=== PATIENT | female | born 1970 | race Caucasian/White ===

== ENCOUNTER 2020-12-16 11:31 | Inpatient (IN) | payer MEDICAID, SELFPAY ==
--- NOTE | ~2020-12-16 | XR_ITS ---
EXAMINATION: XR CHEST CLINICAL INFORMATION: Rule out TB COMPARISON: None TECHNIQUE: Frontal view of the chest was obtained. FINDINGS: No significant abnormality is noted involving the heart, lungs, mediastinum, bony thorax or soft tissues. XR/XR chest 1V IMPRESSION: Unremarkable examination.
--- NOTE | ~2020-12-16 | CT_ITS ---
EXAMINATION: CT SOFT TISSUE NECK WITH CONTRAST CLINICAL INFORMATION: Bilateral parotitis. COMPARISON: There are no prior studies for comparison. TECHNIQUE: Following the intravenous administration of 60 mL of Omnipaque 350 intravenous contrast, helical imaging was performed in the axial plane with generation of coronal and sagittal reformatted images. This CT examination was performed using dose optimization techniques as appropriate, variously including the following: *Automated exposure control *Adjustment of mA and/or kV according to patient size (this includes techniques or standardized protocols for targeted exams where dose is matched to indication/reason for exam; i.e. extremities or head) *Use of iterative reconstruction technique DLP: 364 mGy-cm FINDINGS: The bilateral parotid glands are prominent with increased and slightly heterogenous attenuation. No discrete areas of abnormal enhancement are noted. There is slight increased attenuation in the adjacent subcutaneous fat, and the findings are consistent with inflammatory/infective changes. Similar findings noted in the region of the left submandibular gland, with mild surrounding edematous attenuation. There is no cervical lymphadenopathy. There are small lymph nodes at multiple levels in the neck bilaterally. The right submandibular gland appears normal. The laryngeal structures are normal. The parapharyngeal fat is preserved. There is good opacification of the vascular structures. No extra mucosal soft tissue mass or fluid collection is seen. No retropharyngeal fluid collection is seen. The thyroid gland is normal. The superior mediastinum is unremarkable. There are no pneumothoraces. There are multiple blebs at the right lung apex. There is an osteoma in the right ethmoid sinus. There is mucoperiosteal thickening the bilateral ethmoid sinuses and there is a cyst/polyp in the right maxillary sinus. The temporomandibular joints are normal. No periapical disease is identified. No osseous abnormalities are seen. The imaged portions of the brain parenchyma are unremarkable. CT/CT soft tissue neck w con IMPRESSION: 1. The bilateral parotid and left submandibular glands are prominent with increased and slightly heterogenous attenuation. There is increased attenuation in the surrounding fat and there may be some fluid around the left submandibular gland. These findings are consistent with sialoadenitis in the correct clinical setting. 2. There is no cervical lymphadenopathy. No masses are demonstrated. 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
[2020-12-16 11:54] VITALS: BP 135/100; PULSE 97; RESP 18; TEMP 37.3; O2SAT 98; BMI 17.2
--- NOTE | 2020-12-16 15:48 | ED.URI ---
HPI - URI/Sore Throat General Chief Complaint: Upper Respiratory Symptoms Stated Complaint: swollen glands Time Seen by Provider: 12/16/20 15:22 Source: patient Mode of arrival: ambulatory History of Present Illness HPI Narrative: 50-year-old female with a past medical history of emphysema, substance abuse currently on Suboxone, presents to ED complaining of sore throat and bilateral swollen glands x a couple days. Reports glands are painful with difficulty opening mouth. Reports pain with swallowing. Also reports night sweats last night. Denies fever, ear pain, inability to swallow, SOB, wheezing, recent travel, sick contacts Denies prior TB exposure, prior incarceration, prior IV drug abuse (admits used to snort heroin, currently on Suboxone) Related Data Home Medications Medication Instructions Recorded Confirmed No Known Home Meds 12/16/20 12/16/20 Allergies Allergy/AdvReac Type Severity Reaction Status Date / Time codeine Allergy Swelling Verified 12/16/20 11:53 Review of Systems Review of Systems: Constitutional: No Weight loss, No Fever, + Chills, + Night Sweats, No Fatigue, No Malaise ENT/Mouth: No Hearing loss, No Ear Pain, No Nasal Congestion, No Hoarseness, + sore throat, No Swallowing Difficulty, +painful swallowing Eyes: No Eye Pain, No Swelling, No Redness, No Vision Changes Cardiovascular: No Chest Pain, No SOB Respiratory: No Cough, No Wheezing, No Dyspnea Gastrointestinal: No Nausea, No Vomiting, No Abdominal pain Musculoskeletal: No joint pain, No Myalgias, No Joint Swelling Skin: No Skin Lesions, No rash Neuro: No Weakness, No Headache Yes all other systems are reviewed and are negative [facility] Past Medical History Attestation statement: The following information was validated with the patient. Medical History (Updated 12/16/20 @ 17:47 by DANILO Ward) Emphysema lung Social History Social History Advance Directives: No Advance Directives Information Provided: Yes Patient : No Physical Exam Vital Signs: Vital Signs: Last Vital Signs Temp 99.2 F 12/16/20 11:54 Pulse 97 12/16/20 11:54 Resp 18 12/16/20 11:54 BP 135/100 H 12/16/20 11:54 Pulse Ox 98 12/16/20 11:54 Body Mass Index 17.2 Const: General: cooperative, alert and awake Orientation/consciousness: patient oriented x3 Limitations: no limitations HENMT: Head: Yes normal to inspection Ears: hearing grossly normal bilaterally and TM's normal bilaterally General nose exam: Normal external nose present Face and sinus: Yes normal facial exam Mouth: Normal oral and palatal mucosa present and tongue normal Throat: Yes posterior oropharynx normal, Yes tonsils normal, Yes uvula midline, No peritonsillar mass and No uvular edema Eyes: General: appearance normal, both eyes and all related structures Pupils: Equal, round and reactive pupils present EOM: EOMs intact bilaterally Neck: Neck: Yes bilateral parotid enlargement (with erythema and tenderness to palpation. No fluctuance) Resp: Effort & Inspection: normal respiratory effort, no stridor and not tachypneic Cardio: Rate: regular rate Heart sounds: S1 normal heart sound present and S2 normal heart sound present GI: Inspection: Yes normal to inspection Palpation (GI): Soft to palpation, nontender, no guarding and not rigid Skin: Rashes: no rashes Wounds: no wounds Neuro: General: patient oriented x3 Cranial nerves: Yes Equal, round and reactive pupils present Extrem: General: Yes normal to inspection Course Course Course Narrative: XR chest 1V IMPRESSION: Unremarkable examination. ? -leukocytosis of 14, CRP elevated to 30.22, labs otherwise unremarkable -ID consulted who also recommended adding on toxoplasmosis and cat scratch -1800--ED care transferred to DANILO Iglesias pending remaining labs, CT, and anticipated admission MDM - URI/Sore Throat MDM Narrative Medical decision making narrative: 50-year-old female with a past medical history of emphysema, substance abuse currently on Suboxone, presents to ED complaining of sore throat and bilateral swollen glands x a couple days. On exam hypertensive, nontoxic, bilateral parotid enlargement and tenderness to palpation with overlying erythema. Concern for bilateral parotitis from viral or bacterial etiology with possible overlying cellulitis Rule out syphilis vs HIV vs tuberculosis lymphadenitis Case discussed with Dr. Russell who also evaluated patient and is in agreement with plan Plan: Labs, TB/syphilis/HIV testing, Monospot/rapid strep, lactic/blood cultures, CXR, CT neck, Empiric IV antibiotics, ID consult, anticipated admission Medical Records Attestation: I reviewed the patient's medical records. Lab Data Attestation: I reviewed the patient's lab results. Result diagrams: 12/16/20 16:21 12/16/20 16:21 Labs: Lab Results 12/16/20 12/16/20 12/16/20 Range/Units 16:21 16:21 16:21 WBC 14.0 H (4.8-10.8) X10*3/uL RBC 4.36 (4.20-5.50) X10*6/uL Hgb 13.5 (12.0-16.0) g/dl Hct 40.1 (37-47) % MCV 92.0 (80-98) fL MCH 31.0 (27.0-33.0) pg MCHC 33.7 (31.0-35.0) g/dl RDW 12.5 (11.0-16.0) % Plt Count 253 (160-400) X10*3/uL MPV 9.8 (9.4-12.3) fL Immature Gran % (Auto) 1.5 H (0.0-0.4) % Neut % (Auto) 80.0 H (45-73) % Lymph % (Auto) 9.3 L (20-40) % [place] % (Auto) 8.5 (2-11) % Eos % (Auto) 0.5 (0-4) % Baso % (Auto) 0.2 (0-2) % Lymph # (Auto) 1.3 (1.2-4.9) X10*3/uL [place] # (Auto) 1.2 (0.1-1.2) X10*3/uL Eos # (Auto) 0.1 (0.0-0.4) X10*3/uL Baso # (Auto) 0.0 (0.0-0.2) X10*3/uL Abs Immat Gran (auto) 0.21 H (0.00-0.03) X10*3/uL Absolute Neuts (auto) 11.2 H (2.0-8.3) X10*3/uL Absolute Nucleated RBC 0.000 (0.0-0.012) X10*3/uL Nucleated RBC % (auto) 0.0 (0.0-0.2) /100WBC Sodium 137 (135-145) mmol/L Potassium 3.5 (3.3-5.1) mmol/L Chloride 96 (96-108) mmol/L Carbon Dioxide 26 (22-29) mmol/L Anion Gap 19 (12-20) BUN 9 (9-16) mg/dL Creatinine 0.68 (0.5-1.4) mg/dL Estim Creat Clear Calc 85.9 Estimated GFR > 60 Random Glucose 114 (60-115) mg/dL Lactic Acid (0.5-2.0) mmol/L Calcium 9.7 (8.4-10.2) mg/dL Magnesium (1.6-2.6) mg/dL Total Bilirubin 1.2 H (0.0-1.0) mg/dL Direct Bilirubin 0.5 (0.0-0.5) mg/dL AST 22 (5-31) U/L ALT 16 (0-31) U/L Alkaline Phosphatase 117 (39-117) U/L C-Reactive Protein (< or = 0.50) mg/dL Total Protein 7.5 (6.5-8.0) g/dL Albumin 4.3 (3.5-5.0) g/dL COVID-19 (DANIELLE) (Negative) COVID-19 Clin Com Monoscreen Negative (Negative) S. pyogenes GrpA JERARDO (Negative) 12/16/20 12/16/20 12/16/20 Range/Units 16:21 16:21 16:21 WBC (4.8-10.8) X10*3/uL RBC (4.20-5.50) X10*6/uL Hgb (12.0-16.0) g/dl Hct (37-47) % MCV (80-98) fL MCH (27.0-33.0) pg MCHC (31.0-35.0) g/dl RDW (11.0-16.0) % Plt Count (160-400) X10*3/uL MPV (9.4-12.3) fL Immature Gran % (Auto) (0.0-0.4) % Neut % (Auto) (45-73) % Lymph % (Auto) (20-40) % [place] % (Auto) (2-11) % Eos % (Auto) (0-4) % Baso % (Auto) (0-2) % Lymph # (Auto) (1.2-4.9) X10*3/uL [place] # (Auto) (0.1-1.2) X10*3/uL Eos # (Auto) (0.0-0.4) X10*3/uL Baso # (Auto) (0.0-0.2) X10*3/uL Abs Immat Gran (auto) (0.00-0.03) X10*3/uL Absolute Neuts (auto) (2.0-8.3) X10*3/uL Absolute Nucleated RBC (0.0-0.012) X10*3/uL Nucleated RBC % (auto) (0.0-0.2) /100WBC Sodium (135-145) mmol/L Potassium (3.3-5.1) mmol/L Chloride (96-108) mmol/L Carbon Dioxide (22-29) mmol/L Anion Gap (12-20) BUN (9-16) mg/dL Creatinine (0.5-1.4) mg/dL Estim Creat Clear Calc Estimated GFR Random Glucose (60-115) mg/dL Lactic Acid 1.0 (0.5-2.0) mmol/L Calcium (8.4-10.2) mg/dL Magnesium (1.6-2.6) mg/dL Total Bilirubin (0.0-1.0) mg/dL Direct Bilirubin (0.0-0.5) mg/dL AST (5-31) U/L ALT (0-31) U/L Alkaline Phosphatase (39-117) U/L C-Reactive Protein 30.22 H (< or = 0.50) mg/dL Total Protein (6.5-8.0) g/dL Albumin (3.5-5.0) g/dL COVID-19 (DANIELLE) Negative (Negative) COVID-19 Clin Com See Note Monoscreen (Negative) S. pyogenes GrpA JERARDO (Negative) 12/16/20 12/16/20 Range/Units 16:21 16:23 WBC (4.8-10.8) X10*3/uL RBC (4.20-5.50) X10*6/uL Hgb (12.0-16.0) g/dl Hct (37-47) % MCV (80-98) fL MCH (27.0-33.0) pg MCHC (31.0-35.0) g/dl RDW (11.0-16.0) % Plt Count (160-400) X10*3/uL MPV (9.4-12.3) fL Immature Gran % (Auto) (0.0-0.4) % Neut % (Auto) (45-73) % Lymph % (Auto) (20-40) % [place] % (Auto) (2-11) % Eos % (Auto) (0-4) % Baso % (Auto) (0-2) % Lymph # (Auto) (1.2-4.9) X10*3/uL [place] # (Auto) (0.1-1.2) X10*3/uL Eos # (Auto) (0.0-0.4) X10*3/uL Baso # (Auto) (0.0-0.2) X10*3/uL Abs Immat Gran (auto) (0.00-0.03) X10*3/uL Absolute Neuts (auto) (2.0-8.3) X10*3/uL Absolute Nucleated RBC (0.0-0.012) X10*3/uL Nucleated RBC % (auto) (0.0-0.2) /100WBC Sodium (135-145) mmol/L Potassium (3.3-5.1) mmol/L Chloride (96-108) mmol/L Carbon Dioxide (22-29) mmol/L Anion Gap (12-20) BUN (9-16) mg/dL Creatinine (0.5-1.4) mg/dL Estim Creat Clear Calc Estimated GFR Random Glucose (60-115) mg/dL Lactic Acid (0.5-2.0) mmol/L Calcium (8.4-10.2) mg/dL Magnesium 1.6 (1.6-2.6) mg/dL Total Bilirubin (0.0-1.0) mg/dL Direct Bilirubin (0.0-0.5) mg/dL AST (5-31) U/L ALT (0-31) U/L Alkaline Phosphatase (39-117) U/L C-Reactive Protein (< or = 0.50) mg/dL Total Protein (6.5-8.0) g/dL Albumin (3.5-5.0) g/dL COVID-19 (DANIELLE) (Negative) COVID-19 Clin Com Monoscreen (Negative) S. pyogenes GrpA JERARDO Negative (Negative) Discharge Plan Discharge Clinical Impression: Acute parotitis Prescriptions: No Action No Known Home Meds RF: 0
[2020-12-16 16:29] LABS: MANUAL DIFF FLAG NO
--- NOTE | 2020-12-16 16:32 | PHA.MEDREC ---
Pharmacy Consult ? Medication Reconciliation Pharmacy has completed the medication reconciliation.
[2020-12-16 16:33] LABS: Basophils Percent Auto 0.2 % (0-2); Eosinophils Absolute Auto 0.1 X10*3/uL (0.0-0.4); Eosinophils Percent Auto 0.5 % (0-4); Hematocrit 40.1 % (37-47); Hemoglobin 13.5 g/dl (12.0-16.0); Imm Gran Abs Auto 0.21 X10*3/uL (0.00-0.03); Imm Gran Pct Auto 1.5 % (0.0-0.4); Lymphocytes Absolute Auto 1.3 X10*3/uL (1.2-4.9); Lymphocytes Percent Auto 9.3 % (20-40); Mean Corpuscular HGB Conc 33.7 g/dl (31.0-35.0); Mean Platelet Volume 9.8 fL (9.4-12.3); Monocytes Absolute Auto 1.2 X10*3/uL (0.1-1.2); Monocytes Percent Auto 8.5 % (2-11); Neutrophils Absolute Auto 11.2 X10*3/uL (2.0-8.3); Platelet Count 253 X10*3/uL (160-400); Red Blood Count 4.36 X10*6/uL (4.20-5.50); Red Cell Distribution Width 12.5 % (11.0-16.0)
[2020-12-16 16:41] LABS: Strep A Nucleic Acid Negative (Negative)
[2020-12-16] MEDS: Ketorolac Tromethamine 15 MG/ML VIAL 30 MG IVPUSH (16:46)
[2020-12-16] MEDS: 0.9 % Sodium Chloride 1,000 ML 999 ML IVCONT (16:46)
[2020-12-16] MEDS: ceFAZolin Sodium/Dextrose,Iso 2 GM/50 ML PIGGYBACK IV (16:47)
[2020-12-16 16:49] LABS: COVID-19 Test Negative (Negative)
[2020-12-16 16:51] LABS: Monotest Negative (Negative)
[2020-12-16 16:58] LABS: C Reactive Protein 30.22 mg/dL (< or = 0.50)
[2020-12-16 17:01] LABS: Magnesium 1.6 mg/dL (1.6-2.6)
[2020-12-16 17:11] LABS: Alanine Aminotransferase 16 U/L (0-31); Albumin Level 4.3 g/dL (3.5-5.0); Alkaline Phosphatase 117 U/L (39-117); Anion Gap 19 (12-20); Aspartate Amino Transferase 22 U/L (5-31); Bilirubin Direct 0.5 mg/dL (0.0-0.5); Bilirubin Total 1.2 mg/dL (0.0-1.0); Blood Urea Nitrogen 9 mg/dL (9-16); Calcium 9.7 mg/dL (8.4-10.2); Carbon Dioxide 26 mmol/L (22-29); Chloride 96 mmol/L (96-108); Creatinine Clr Calc Pharmacy 85.9; Estimated Glomerular Filt Rate > 60; Glucose Random 114 mg/dL (60-115); Potassium 3.5 mmol/L (3.3-5.1); Sodium 137 mmol/L (135-145); Total Protein 7.5 g/dL (6.5-8.0)
[2020-12-16] MEDS: iohexoL 350 MG/ML 100 ML INFUS..BTL IV (18:01)
[2020-12-16 18:05] LABS: Erythrocyte Sedimentation Rate 37 MM/HR (0-20)
[2020-12-16 18:50] LABS: Amphetamine Screen Urine Not Detected (Not Detect); Barbiturates, Urine Not Detected (Not Detect); Benzodiazepines Screen Urine Not Detected (Not Detect); Cannabinoid Screen Urine POSITIVE (Not Detect); Cocaine Screen Urine POSITIVE (Not Detect); Opiate Screen Urine POSITIVE (Not Detect); Phencyclidine Screen Urine Not Detected (Not Detect)
[2020-12-16 19:33] VITALS: BP 122/66; PULSE 62; RESP 18; TEMP 37.2; O2SAT 98
--- NOTE | 2020-12-16 21:35 | PC.NURSE ---
pt remains sleeping. very sleepy as though client used. not safe for client to be d.c at this time. still pending eval
[2020-12-16 21:41] VITALS: BP 140/83; PULSE 53; RESP 16; TEMP 36.8; O2SAT 94
[2020-12-17] VITALS (7 sets, daily range): BP systolic 122–157; BP diastolic 71–94; PULSE 58–100; RESP 18–20; TEMP 36.1–37.3; O2SAT 95–99; BMI 17.0
[2020-12-17] MEDS: Ketorolac Tromethamine 15 MG/ML VIAL 30 MG IVPUSH (00:25)
--- NOTE | 2020-12-17 00:27 | PC.NURSE ---
pt medicated per PA orders for 10/10 throat pain. hospitalist at bedside for primary evaluation. pt denies taking medication daily and admits to previous suboxone use but denies consistently using and/or being dosed regularly as she is from [place].
--- NOTE | 2020-12-17 01:23 | P.HPHOSP_ITS ---
History of Present Illness Date of Service: 12/17/20 Chief Complaint: Bilateral parotid swelling 50-year-old female with no significant past medical history except for substance abuse; heroin abuse-sniffs; denies IV drug abuse; presented to the hospital today with a chief complaint of bilateral parotid swelling. Mentions that pain she has been having bilateral parotid swelling or past couple days. Denies any fevers and chills. Complains of throat pain/discomfort. Patient also complains of cough with brownish sputum. Denies any rash. Denies any sick contacts. Patient denies any chest pain, palpitations, lightheadedness or dizziness. Denies any GI or symptoms. Review of all other systems is negative except mentioned above ER course: ER team mentioned that patient of bilateral parotid swelling; CT scan showed no obvious abscess formationn but noted swelling of the bilateral parotids and fluid around; discussed with infectious disease who recommended to send HIV, RPR, strep throat, toxoplasma, TB spot test; patient was given Ceftin for sole in and admitted to the hospital for further management. [facility] Medical History (Updated 12/18/20 @ 14:04 by Los Guy MD) Emphysema lung Opioid use disorder Social History Household Members: Family Housing: House Do you presently have visiting nurse or other home services: No Patient Tobacco Use Status: Current everyday Tobacco user Tobacco use type: Cigarette and Smokeless Tobacco Cigarette Packs Per Day: 0.5 Cigarettes Per Day: 10.0 Years Smoked: 12 Second Hand Smoke Exposure: No Substance Use Type: Crack/Cocaine, Marijuana and Opiates service: No Current occupational status: unemployed Meds Allergies Allergy/AdvReac Type Severity Reaction Status Date / Time codeine Allergy Swelling Verified 12/16/20 11:53 Active Medications: Current Medications Generic Name Dose Route Start Last Admin Trade Name Freq PRN Reason Stop Dose Admin Benzocaine 1 lozenge 12/17/20 01:15 Throat Lozenge, Medicated Lozenge MUCOUS MEM Q2H PRN Sore Throat Dexamethasone Sodium Phosphate 4 mg 12/17/20 09:00 Dexamethasone Sod Phosphate 4 Mg/Ml Vial IVPUSH DAILY [facility] Heparin Sodium (Porcine) 5,000 unit 12/17/20 01:15 Heparin Sodium,Porcine 5,000 Unit/Ml Vial SUBCUT Q8H [facility] Clindamycin Phosphate 600 mg in 50 mls @ 100 mls/hr 12/17/20 01:15 Cleocin IV Q8H [facility] Ketorolac Tromethamine 15 mg 12/17/20 01:15 Ketorolac Tromethamine 15 Mg/Ml Vial IVPUSH Q6H [facility]N [facility] Consult 1 each 12/16/20 15:39 Consult Rx Perform Med Rec MISCELLANE ONCE PRN Consult order Sodium Chloride 3 ml 12/17/20 08:00 0.9 % Sodium Chloride Flush 3 Ml Syringe IVFLUSH QSHIFT [facility] Physical Exam Vital Signs and Narrative: Vital Signs: Last Vital Signs Temp 98.3 F 12/16/20 21:41 Pulse 82 12/17/20 00:04 Resp 18 12/17/20 00:04 BP 157/86 H 12/17/20 00:04 Pulse Ox 99 12/17/20 00:04 Body Mass Index 17.2 Gen: Appears be in no acute distress; breathing comfortably; speaks in full sentences a HEENT: NCAT, Moist mucosa. Noted bilateral swelling of the parotid gland; no superficial erythema; tender on palpation; throat appears clear; Pulmonary: Vesicular breath sounds, fair air entry; no stridor CVS: Normal S1-S2 Abdomen: BS+, Soft, Nontender Extremities: Warm well perfused Neuro: Alert and awake. Results Labs CBC and Chem 7: 12/16/20 16:21 12/16/20 16:21 Labs: Laboratory Results - last 24 hr 12/16/20 12/16/20 12/16/20 16:21 16:21 16:21 MCV 92.0 MCH 31.0 MCHC 33.7 RDW 12.5 Plt Count 253 MPV 9.8 Immature Gran % (Auto) 1.5 H Neut % (Auto) 80.0 H Lymph % (Auto) 9.3 L [place] % (Auto) 8.5 Eos % (Auto) 0.5 Baso % (Auto) 0.2 Lymph # (Auto) 1.3 [place] # (Auto) 1.2 Eos # (Auto) 0.1 Baso # (Auto) 0.0 Abs Immat Gran (auto) 0.21 H Absolute Neuts (auto) 11.2 H Absolute Nucleated RBC 0.000 Nucleated RBC % (auto) 0.0 ESR 37 H Anion Gap Estim Creat Clear Calc Estimated GFR Random Glucose Lactic Acid Calcium Magnesium Total Bilirubin Direct Bilirubin AST ALT Alkaline Phosphatase C-Reactive Protein Total Protein Albumin Urine Opiates Screen Ur Barbiturates Screen Ur Phencyclidine Scrn Ur Amphetamines Screen U Benzodiazepines Scrn Urine Cocaine Screen U Marijuana (THC) Screen COVID-19 (DANIELLE) COVID-19 Clin Com Monoscreen Negative S. pyogenes GrpA JERARDO 12/16/20 12/16/20 12/16/20 16:21 16:21 16:21 MCV MCH MCHC RDW Plt Count MPV Immature Gran % (Auto) Neut % (Auto) Lymph % (Auto) [place] % (Auto) Eos % (Auto) Baso % (Auto) Lymph # (Auto) [place] # (Auto) Eos # (Auto) Baso # (Auto) Abs Immat Gran (auto) Absolute Neuts (auto) Absolute Nucleated RBC Nucleated RBC % (auto) ESR Anion Gap 19 Estim Creat Clear Calc 85.9 Estimated GFR > 60 Random Glucose 114 Lactic Acid 1.0 Calcium 9.7 Magnesium Total Bilirubin 1.2 H Direct Bilirubin 0.5 AST 22 ALT 16 Alkaline Phosphatase 117 C-Reactive Protein Total Protein 7.5 Albumin 4.3 Urine Opiates Screen Ur Barbiturates Screen Ur Phencyclidine Scrn Ur Amphetamines Screen U Benzodiazepines Scrn Urine Cocaine Screen U Marijuana (THC) Screen COVID-19 (DANIELLE) Negative COVID-19 Clin Com See Note Monoscreen S. pyogenes GrpA JERARDO 12/16/20 12/16/20 12/16/20 16:21 16:21 16:23 MCV MCH MCHC RDW Plt Count MPV Immature Gran % (Auto) Neut % (Auto) Lymph % (Auto) [place] % (Auto) Eos % (Auto) Baso % (Auto) Lymph # (Auto) [place] # (Auto) Eos # (Auto) Baso # (Auto) Abs Immat Gran (auto) Absolute Neuts (auto) Absolute Nucleated RBC Nucleated RBC % (auto) ESR Anion Gap Estim Creat Clear Calc Estimated GFR Random Glucose Lactic Acid Calcium Magnesium 1.6 Total Bilirubin Direct Bilirubin AST ALT Alkaline Phosphatase C-Reactive Protein 30.22 H Total Protein Albumin Urine Opiates Screen Ur Barbiturates Screen Ur Phencyclidine Scrn Ur Amphetamines Screen U Benzodiazepines Scrn Urine Cocaine Screen U Marijuana (THC) Screen COVID-19 (DANIELLE) COVID-19 Clin Com Monoscreen S. pyogenes GrpA JERARDO Negative 12/16/20 18:14 MCV MCH MCHC RDW Plt Count MPV Immature Gran % (Auto) Neut % (Auto) Lymph % (Auto) [place] % (Auto) Eos % (Auto) Baso % (Auto) Lymph # (Auto) [place] # (Auto) Eos # (Auto) Baso # (Auto) Abs Immat Gran (auto) Absolute Neuts (auto) Absolute Nucleated RBC Nucleated RBC % (auto) ESR Anion Gap Estim Creat Clear Calc Estimated GFR Random Glucose Lactic Acid Calcium Magnesium Total Bilirubin Direct Bilirubin AST ALT Alkaline Phosphatase C-Reactive Protein Total Protein Albumin Urine Opiates Screen POSITIVE H Ur Barbiturates Screen Not Detected Ur Phencyclidine Scrn Not Detected Ur Amphetamines Screen Not Detected U Benzodiazepines Scrn Not Detected Urine Cocaine Screen POSITIVE H U Marijuana (THC) Screen POSITIVE H COVID-19 (DANIELLE) COVID-19 Clin Com Monoscreen S. pyogenes GrpA JERARDO Imaging Radiologist's Impressions: Impressions Chest X-Ray 12/16/20 15:39 IMPRESSION: Unremarkable examination. Soft Tissue Neck CT 12/16/20 15:39 IMPRESSION: 1. The bilateral parotid and left submandibular glands are prominent with increased and slightly heterogenous attenuation. There is increased attenuation in the surrounding fat and there may be some fluid around the left submandibular gland. These findings are consistent with sialoadenitis in the correct clinical setting. 2. There is no cervical lymphadenopathy. No masses are demonstrated. 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 Assessment and Plan (1) Acute parotitis: Status: Acute 50-year-old female with a past medical history of heroin abuse; denies any IV drug use; presented to the hospital with a chief complaint of parotid swelling for the past couple days. Bilateral parotitis/left mandibular gland heterogeneous attenuation: Will continue the patient on Unasyn Id consult HIV, RPR, Bartonella, toxoplasma, TP pending; [place] screen and strep throat negative Total p.r.n. for pain control Decadron for edema Speech and swallow eval History of heroin abuse: Patient mentioned that she usually sniffs heroin. Patient mentioned that she has plans for following up with Suboxone clinic. Addiction Medicine follow-up. DVT prophylaxis: Subcu heparin Code status: Full code Quality Stroke Does the patient have a stroke diagnosis?: No VTE Prior VTE?: No VTE Risk Level:: Medical - moderate - high VTE Device Contraindication: Treatment Not Indicated VTE Drug Contraindication: N/A - Med Ordered
[2020-12-17] MEDS: Ampicillin Sodium/Sulbactam Na 3 GM in 0.9 % Sodium Chloride 100 ML IV ×4 (02:07→21:06)
[2020-12-17] MEDS: Dextrose 5 % and 0.45 % NaCl 1,000 ML 100 ML IVCONT ×2 (02:08→12:36)
[2020-12-17] MEDS: Heparin Sodium,Porcine 5,000 UNIT/ML VIAL 5000 UNIT SUBCUT ×3 (02:14→17:01)
[2020-12-17 04:38] LABS: Syphilis Screen Nonreactive (Nonreactive)
[2020-12-17 04:41] LABS: HIV AB/AG Nonreactive (Nonreactive); HIV Num 1 0.06 S/CO (0.00-0.99)
[2020-12-17] MEDS: Ketorolac Tromethamine 15 MG/ML VIAL IVPUSH ×2 (05:50→21:11)
[2020-12-17] MEDS: dexAMETHasone sod phosphate 4 MG/ML VIAL IVPUSH (09:12)
--- NOTE | 2020-12-17 10:30 | PM.EVENT ---
Event Note Date of Service: 12/17/20 Event Note: Addiction note: Patient seen this morning. Wants to restart suboxone Does not feel ready yet (minimal withdrawal sx) Plan: -patient to inform RN when she is ready to restart and this commercial insurance underwriter will place order -full consult note to follow
--- NOTE | 2020-12-17 11:17 | MHC.SL.SWA ---
Speech Pathologist Impression: Within Functional Limits Risk of Aspiration Due to: None Dysphasia Diet Status: Upgrade Liquid Consistency and Strategies for Safe Swallow: Liquid Intake Recommendation: Thin Liquid Intake Strategies: Unrestricted Solid Food Consistency: Dietary Recommendations: Regular Additional Modifications to Solid Foods: Oral Medication Intake: Whole with Liquid Compensatory Strategies and Precautions to be Taken for Safe Swallow: Sitting Upright (90 deg) Liquids from Cup Liquids from Straw Small Bites and Sips Alternate Liquids/Solids Supervision While Eating and Drinking for Safe Swallow: Intermittent Supervision Foods to Avoid: Swallowing Recommended Treatments: Recommendation for Speech: NA:Typical Evaluation Comment: Frequency/Duration: Date Range for Service Req: Timeline to reassess: Automotive Sales Representative Clinican/Clinical Fellow: No Supervisory Statement: I have reviewed and agree with the student/clinical fellow's documentation: N/A Speech Language Pathologist: Sydnee Coronel M.A. CCC-[employer]
--- NOTE | 2020-12-17 12:37 | MHC.CM.PN ---
EMR REVIEWED, PT ADMITTED W/PAROTITIS, PT +OPIATES,COCAINE AND MARIJUANA, PT WAS ON SUBOXONE BUT REPORTS SHE STOPPED GOING TO HER CLINIC IN [place] 2 WKS AGO, PT HAS ORDER FOR ADDICTION MEDICINE CONSULT, PT HAS [facility] AND REPORTS SHE PLANS TO RELOCATE TO [facility], REFERRAL FOR FINANCIAL SERVICES TO BE PLACED TO ASSIST PT W/TXFR OF INSURANCE, PT REPORTS SHE CANNOT RECALL HER PCP IN [place] WAS AND HAS NO PCP OR [facility] INSURANCE AT THIS TIME, PT IS INTERESTED IN COMPLETING HCP PRIOR TO D/C. D/C PLAN: RETURN TO HOME SHE IS STAYING VS RETURN TO [place], PT TO ARRANGE TRANSPORT.
--- NOTE | 2020-12-17 13:44 | PM.EVENT ---
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 Patient seen by speech therapy and recommended to start regular diet On examination Persistent swelling bilateral face /tender to touch, firm Lungs clear to auscultation Assessment plan Bilateral parotitis continue IV Unasyn day1 ,iv antibiotic, HIV negative, strep pyogenes negative,RPR nonreactive , Bartonella, toxoplasma, TB pending; Decadron iv for edema, follow blood cultures Await ID input, recommend to suck on hard candy Placed on regular diet History of heroin abuse seen by Helene Jiang she will follow patient no recommendation at present.
[2020-12-17] MEDS: clonazePAM 0.5 MG TABLET PO (14:44)
[2020-12-17] MEDS: 0.9 % Sodium Chloride Flush 3 ML SYRINGE IVFLUSH (17:01)
--- NOTE | 2020-12-17 17:15 | W.PM.IDCN ---
History of Present Illness Data of Consult Service Date: 12/17/20 Requesting physician: Sinan Gonzalez Primary Care Provider: None Physician HPI Reason for consult: parotitis She presents to ER with bilateral parotid swelling right more than left for two days She has no fever or chills She says she had COVID vaccines two months ago. She has no known HIV or Hepatitis C She has no dental work Her mother has a bird She has no foreign travel Review of Systems Review of Systems: Yes all other systems are reviewed and are negative PMFSH Past Medical History Medical History (Updated 12/17/20 @ 17:21 by oLri Henderson MD) Emphysema lung Opioid use disorder Social History Social History Household Members: Family Housing: House Do you presently have visiting nurse or other home services: No Patient Tobacco Use Status: Current everyday Tobacco user Tobacco use type: Cigarette and Smokeless Tobacco Cigarette Packs Per Day: 0.5 Cigarettes Per Day: 10.0 Years Smoked: 12 Smoked in Last 30 Days: Yes Frequency of e-Cigarette/Vaping Use: occasionally Patient Given Instructions on How to Stop Smoking: No Second Hand Smoke Exposure: No Use of substances other than those prescribed or required for medical reasons: Yes Substance Use Type: Crack/Cocaine, Marijuana and Opiates Substance Use Type Other:: Suboxone Last Used Substance: Days (ago) Currently Displaying Signs/Symptoms of Drug Intoxication Withdrawal: No Any prior treatment program specific to substance use: Yes Have you been hit, kicked, punched, or otherwise hurt by someone within the past year? If so, by whom?: No (Patient has prior history greater than 20 years ago.) Do you feel safe in your current relationship?: Yes Is there a partner from a previous relationship who is making you feel unsafe now?: No Are you made to feel afraid or neglected: No Advance Directives: No Advance Directives Information Provided: Yes Do you have thoughts of harming others: None Do you have a plan to hurt others: No Plan Recently lost weight without trying: No Nutrition Risks: No Nutritional Risk Patient : No : No Poor oral hygiene: No service: No Current occupational status: unemployed Meds Allergies Allergy/AdvReac Type Severity Reaction Status Date / Time codeine Allergy Swelling Verified 12/16/20 11:53 Active Medications: Current Medications Generic Name Dose Route Start Last Admin Trade Name Rodney PRN Reason Stop Dose Admin Benzocaine 1 lozenge 12/17/20 01:15 Throat Lozenge, Medicated Lozenge MUCOUS MEM Q2H PRN Sore Throat Buprenorphine/Naloxone 1 film 12/17/20 13:33 Buprenorphine/Naloxone 4/1 Mg Film SUBLINGUAL ONCE PRN Opiate Withdrawal Clonazepam 0.5 mg 12/17/20 14:34 12/17/20 14:44 Clonazepam 0.5 Mg Tablet PO 0.5 mg TID PRN Administration Anxiety Dexamethasone Sodium Phosphate 4 mg 12/17/20 09:00 12/17/20 09:12 Dexamethasone Sod Phosphate 4 Mg/Ml Vial IVPUSH 4 mg DAILY LINWOOD Administration Heparin Sodium (Porcine) 5,000 unit 12/17/20 01:15 12/17/20 17:01 Heparin Sodium,Porcine 5,000 Unit/Ml Vial SUBCUT 5,000 unit Q8H LINWOOD Administration Ampicillin Sodium/Sulbactam 100 mls @ 200 mls/hr 12/17/20 01:30 12/17/20 14:27 Sodium 3 gm/ Sodium Chloride IV Infused Q6H LINWOOD Infusion Dextrose/Sodium Chloride 1,000 mls @ 100 mls/hr 12/17/20 01:45 12/17/20 12:36 D51/2ns IVCONT 100 mls/hr .Q10H LINWOOD Administration Ketorolac Tromethamine 15 mg 12/17/20 01:15 12/17/20 05:50 Ketorolac Tromethamine 15 Mg/Ml Vial IVPUSH 15 mg Q6H PRN Administration [facility] Consult 1 each 12/16/20 15:39 Consult Rx Perform Med Rec MISCELLANE ONCE PRN Consult order Sodium Chloride 3 ml 12/17/20 08:00 12/17/20 17:01 0.9 % Sodium Chloride Flush 3 Ml Syringe IVFLUSH 3 ml QSHIFT LINWOOD Administration Home Medications Medication Instructions Recorded Confirmed Last Taken Type No Known Home Meds 12/16/20 12/16/20 Unknown History Physical Exam Vital Signs: Vital Signs: Last Vital Signs Temp 97.0 F 12/17/20 14:57 Pulse 72 12/17/20 14:57 Resp 20 12/17/20 14:57 BP 122/71 12/17/20 14:57 Pulse Ox 98 12/17/20 14:57 Body Mass Index 17.0 Const: General: cooperative Nutritional Appearance: malnourished HENMT: Head: Yes normal to inspection Mouth: audible dysphonia, No mouth trauma, muffled voice, restricted motion and other (firm parotid glands) Throat: Yes posterior oropharynx normal Resp: Effort & Inspection: normal respiratory effort Cardio: Rate: regular rate Rhythm: regular rhythm GI: Palpation (GI): Soft to palpation and nontender Skin: General skin exam: no rashes or lesions noted Results Labs CBC & Chem 7: 12/16/20 16:21 12/16/20 16:21 Assessment and Plan (1) Acute parotitis: Status: Acute There is concern over viral or bacterial concerns Syphilis,TB and HIV and Hepatitis C all especially acute can cause this Bartonella even if doesnt owns cat and typhus rickettsia can cause this Suggest Check serologies as above Unasyn change to Augmentin for a week Follow up blood results and see ENT outpatient possibly (2) Opioid use disorder: Status: Acute
[2020-12-17 18:58] LABS: Syphilis Screen Nonreactive (Nonreactive)
[2020-12-18] VITALS (10 sets, daily range): BP systolic 129–150; BP diastolic 60–92; PULSE 55–84; RESP 18–20; TEMP 36–37.3; O2SAT 96–100
[2020-12-18] MEDS: Heparin Sodium,Porcine 5,000 UNIT/ML VIAL 5000 UNIT SUBCUT ×3 (00:23→17:18)
[2020-12-18] MEDS: Dextrose 5 % and 0.45 % NaCl 1,000 ML 100 ML IVCONT ×2 (00:23→11:17)
[2020-12-18] MEDS: Ampicillin Sodium/Sulbactam Na 3 GM in 0.9 % Sodium Chloride 100 ML IV ×4 (02:32→22:16)
[2020-12-18 08:09] LABS: HIV AB/AG Nonreactive (Nonreactive); HIV Num 1 0.05 S/CO (0.00-0.99)
[2020-12-18] MEDS: dexAMETHasone sod phosphate 4 MG/ML VIAL IVPUSH (08:14)
[2020-12-18] MEDS: 0.9 % Sodium Chloride Flush 3 ML SYRINGE IVFLUSH ×2 (08:15→17:23)
[2020-12-18 08:43] LABS: ~HepC Num1 15.12 S/CO (0.00-0.79); ~Hepatitis C Antibody Reactive (Nonreactive)
--- NOTE | 2020-12-18 11:00 | MHC.RECOVRN ---
50 year old female presented to [facility] ED, ambulatory, on 12/16 due to sore throat, and swollen glands on bilaterally on neck that are tender to the touch x5 days per third hand. Pt subsequently admitted due to concern for bilateral parotitis from viral or bacterial etiology with possible overlying cellulitis and to rule out syphilis vs HIV vs tuberculosis lymphadenitis. Pt also reported substance use, [place] heroin, while in ED.? T/w met with pt in 469 to discuss substance use. Pt reports moving from [place] approximately one month ago. While in [place], pt had been prescribed Suboxone on and off for years. Pt reports last Suboxone use 2 weeks ago. Per [facility], pts last script was filled in [place] on 10/10 for a 6 day supply of 8/2mg. Pt reports longest period of recovery was 1 year.? Pt reports [place] heroin, 0.1-1 gram daily x 2 weeks, last use while in ED, 3 bags.? Pt reports benzodiazepine?use occasionally, [place], last use unknown.? Pt reports hx alcohol use, last use over a month ago.?? Pt reports crack use, INH, x 3 weeks, last use within the past week. Pt reports crack use only while spending time with ex .? Pt currently lives with parents in [place] and has supportive siblings. Pt has 3 children who are also a support. Pt has own car for transportation.? Pt interested in restarting Suboxone. One 4 mg dose has been ordered prn for when pt feels ready to start. Pt aware of precipitated withdrawal and has not yet taken the film.? Case discussed with Helene Jiang APRN, as well as pts RN. Will continue to follow.?
--- NOTE | 2020-12-18 13:57 | HO.PM.IMPN ---
Subjective Subjective Date of Service: 12/18/20 Interval History: Seen in f/u for parotitis, still has pain, but overall better Review of Systems Gen: no fever Resp: no sob, no cough CV: no chest, no VANG, no leg edema GI: No n/v, no abd pain Neuro: No confusion Physical Exam Vital Signs: Vital Signs: Last Vital Signs Temp 97 F 12/18/20 11:22 Pulse 64 12/18/20 11:22 Resp 18 12/18/20 11:22 BP 142/60 H 12/18/20 11:22 Pulse Ox 99 12/18/20 11:22 Body Mass Index 17.0 Const: Other: General: AO X 3, no acute distress HEENT--less swelling in ileana jaw lines Resp: CTA bilateral CVS: S1,S2,RRR GI: +BS, NT, no distention Skin: No rash Neuro: motor grossly intact Psych: appropriate affect Objective Data Current Medications Generic Name Dose Route Start Last Admin Trade Name Freq PRN Reason Stop Dose Admin Benzocaine 1 lozenge 12/17/20 01:15 Throat Lozenge, Medicated Lozenge MUCOUS MEM Q2H PRN Sore Throat Buprenorphine/Naloxone 1 film 12/17/20 13:33 Buprenorphine/Naloxone 4/1 Mg Film SUBLINGUAL ONCE PRN Opiate Withdrawal Clonidine HCl 0.1 mg 12/18/20 10:11 Clonidine Hcl 0.1 Mg Tablet PO TID PRN Anxiety Protocol Dexamethasone Sodium Phosphate 4 mg 12/17/20 09:00 12/18/20 08:14 Dexamethasone Sod Phosphate 4 Mg/Ml Vial IVPUSH 4 mg DAILY LINWOOD Administration Heparin Sodium (Porcine) 5,000 unit 12/17/20 01:15 12/18/20 08:14 Heparin Sodium,Porcine 5,000 Unit/Ml Vial SUBCUT 5,000 unit Q8H LINWOOD Administration Ampicillin Sodium/Sulbactam 100 mls @ 200 mls/hr 12/17/20 01:30 12/18/20 09:56 Sodium 3 gm/ Sodium Chloride IV Infused Q6H LINWOOD Infusion Dextrose/Sodium Chloride 1,000 mls @ 100 mls/hr 12/17/20 01:45 12/18/20 11:17 D51/2ns IVCONT 100 mls/hr .Q10H LINWOOD Administration Ketorolac Tromethamine 15 mg 12/17/20 01:15 12/17/20 21:11 Ketorolac Tromethamine 15 Mg/Ml Vial IVPUSH 15 mg Q6H PRN Administration [facility] Consult 1 each 12/16/20 15:39 Consult Rx Perform Med Rec MISCELLANE ONCE PRN Consult order Sodium Chloride 3 ml 12/17/20 08:00 12/18/20 08:15 0.9 % Sodium Chloride Flush 3 Ml Syringe IVFLUSH 3 ml QSHIFT LINWOOD Administration Labs CBC & Chem 7: 12/16/20 16:21 12/16/20 16:21 Labs: Laboratory Results - last 24 hr 12/17/20 12/17/20 12/17/20 17:58 17:58 17:58 T.pallidum Ab (EIA) Nonreactive Hepatitis C Ab (EIA) Reactive H HIV 1&2 Ab/P24 Ag 4thGn Nonreactive Microbiology Microbiology Results: Microbiology 12/16/20 16:21 Blood Culture - Preliminary Blood - Venous No growth after 24 hours. 12/16/20 16:32 Blood Culture - Preliminary Blood - Venous No growth after 24 hours. Assessment and Plan (1) Acute parotitis: Status: Acute (2) Opioid use disorder: Status: Acute (3) Hepatitis C: Status: Acute Assessment and Plan: 50/year female with opioid dependence here with with Bilateral parotitis, improving, continue IV Unasyn, will discuss with ID when she can go home. HIV negative, strep pyogenes negative, RPR nonreactive , Bartonella, toxoplasma, TB pending; Decadron iv for edema, blood cultures pending. Will get relief from sucking on hard candy History of heroin abuse seen by Helene Jiang she will follow patient no recommendation Hep C positive, should be addressed with treatment on outpatient basis Quality Stroke Does the patient have a stroke diagnosis?: No VTE Prior VTE?: No VTE Risk Level:: Medical - moderate - high VTE Device Contraindication: Treatment Not Indicated VTE Drug Contraindication: N/A - Med Ordered
[2020-12-18] MEDS: Buprenorphine/Naloxone 4/1 mg FILM 1 FILM SUBLINGUAL ×2 (14:04→22:15)
[2020-12-18] MEDS: cloNIDine HCL 0.1 MG TABLET PO ×2 (14:04→18:04)
--- NOTE | 2020-12-18 14:30 | MHC.RECOVRN ---
T/w met with pt to provide list of [facility] providers in the [facility]. Pt encouraged to choose a provider so linkage could be provided. Pt recently received 4 mg Suboxone and is tolerating well. Will continue to follow.
--- NOTE | 2020-12-18 16:25 | MHC.RECOVRN ---
Met with pt to assess for precipitated withdrawal. Pt reports taking Suboxone earlier due to legs being uncomfortable. Pt experiencing withdrawal symptoms, yawning, chills, tearing, restless legs. Pt educated regarding precipitated withdrawal management. Pt would like to wait and not receive more Suboxone. Case discussed with Helene Jiang APRN.
[2020-12-18] MEDS: Ketorolac Tromethamine 15 MG/ML VIAL IVPUSH (17:20)
[2020-12-18 21:17] LABS: Toxoplasma IgG Antibody <7.20 IU/mL; Toxoplasma IgM Antibody <8.00 AU/mL
[2020-12-19] VITALS: BP 125/77; PULSE 68; RESP 18; TEMP 36.9; O2SAT 99
[2020-12-19] MEDS: Dextrose 5 % and 0.45 % NaCl 1,000 ML 100 ML IVCONT (00:18)
[2020-12-19] MEDS: Heparin Sodium,Porcine 5,000 UNIT/ML VIAL 5000 UNIT SUBCUT ×2 (02:14→07:55)
[2020-12-19] MEDS: Ampicillin Sodium/Sulbactam Na 3 GM in 0.9 % Sodium Chloride 100 ML IV ×2 (02:14→07:54)
[2020-12-19 03:47] VITALS: BP 136/82; PULSE 76; RESP 18; TEMP 36.9; O2SAT 96
[2020-12-19 06:49] VITALS: BP 156/84; PULSE 62; RESP 18; TEMP 36.6; O2SAT 96
[2020-12-19] MEDS: dexAMETHasone sod phosphate 4 MG/ML VIAL IVPUSH (07:55)
[2020-12-19] MEDS: Buprenorphine/Naloxone 8/2 mg FILM 1 FILM SUBLINGUAL (07:55)
[2020-12-19] MEDS: cloNIDine HCL 0.1 MG TABLET PO (07:55)
[2020-12-19 10:58] VITALS: BP 170/80; PULSE 55; RESP 18; TEMP 36; O2SAT 96
--- NOTE | 2020-12-19 11:30 | MHC.RECOVRN ---
T/w notified pts father was here and would like to speak to t/w. T/w obtained permission from pt to speak with father. Father informed t/w that [place] come to [place] to enter into recovery and has so far been unsuccessful. Father would like pt to enter into treatment facility but reports pt has been unwilling. T/w discussed entering treatment with pt, pt agreeable to ATS. T/w discussed case with Recovery Still Operator Brandy who will look into ATS options. Case discussed with Helene Jiang APRN. .
--- NOTE | 2020-12-19 11:50 | P.DS_ITS ---
DS: Providers Provider Date of Service: 12/19/20 Date of admission: 12/17/20 01:15 Primary care physician: None Physician Consults: 12/17/20 01:14 Consult to Infectious Diseases Routine Consulting Provider: Lori Henderson Reason for consultation: parotitis 12/17/20 08:47 Addiction Medicine Routine Consulting Provider: Helene Jiang Reason for consultation: heroin use Has provider been notified: No DS: Diagnosis Discharge Diagnosis (1) Acute parotitis: Status: Acute (2) Opioid use disorder: Status: Acute (3) Hepatitis C: Status: Acute DS: Medications Discharge Medications Home Medications: Home Medications Medication Instructions Recorded Confirmed No Known Home Meds 12/16/20 12/16/20 DS: Summary Hospital Course Hospital Course: 50 year old female with opioid use desorder, cocaine use history who presented with bilateral parotid swelling of 2-3 days duration, with no fevers no chills, had mild sore throat that has now resolved, had associated elevated CRP, elevated WBC.CT of the neck showed bilateral parotid and left submandibular glands are prominent with increased and slightly heterogenous attenuation. There is increased attenuation in the surrounding fat and there may be some fluid around the left submandibular gland. These findings are consistent with sialoadenitis in the correct clinical setting She was started on IV Unasyn, HiV test is negative HIV negative, strep pyogenes negative, RPR nonreactive , Bartonella, toxoplasma, TB pending; Was given IV decadron to help with swelling which has now resolved. She is able to eat. She was seen by ID is recommended for Doxycline at discharge For opioiddepence--She was seen by the addiction service and has been set up with resources in the communicty next week, advised on need for cessation. She is initiated on Suboxone Hepc--She is aware of this and should follow up with PCP on outpatient basis for genotyping, viral load and treatment Time Spent with Patient Time attestation: Total time spent providing and/or coordinating discharge services: Discharge coordination time: Greater than 30 minutes Quality: Stroke Does the patient have a stroke diagnosis?: No Physical Exam 2 Vital Signs: Vital Signs: Last Vital Signs Temp 96.8 F 12/19/20 10:58 Pulse 55 12/19/20 10:58 Resp 18 12/19/20 10:58 BP 170/80 H 12/19/20 10:58 Pulse Ox 96 12/19/20 10:58 Body Mass Index 17.0 DS: Data Data Completed and Pending Labs on day of discharge: Laboratory Results - last 24 hr 12/16/20 21:01 Toxoplasma IgG Ab <7.20 Toxoplasma IgM Ab <8.00 Preliminary micro results at discharge 12/16/20 16:21 Blood Culture - Preliminary Blood - Venous No growth after 48 hours. 12/16/20 16:32 Blood Culture - Preliminary Blood - Venous No growth after 48 hours. Discharge Plan Discharge Anticipated Discharge Date/Time: 12/19/20 11:38 Patient Disposition: Home, Self-Care Discharge Diagnosis: Parotitis, opioid dependence Referrals: [facility] [Other] - 3-5 Days (PLEASE FOLLOW UP ON Tuesday12/22/20) Physician,None [Primary Care Provider] - 1 Week Discharge Medications: New doxycycline hyclate 100 mg tablet 100 mg PO BID Qty: 20 RF: 0 No Action No Known Home Meds RF: 0 Discharge Orders: Discharge Order (Routine); Ordered 12/19/20 Ordered By: Los Guy Diet: advance to usual diet Activity on Discharge: As tolerated Stand Alone Forms: Patient Portal Discharge page Care Plan Goals: Resolution of parotitis Health Concerns: opioid dependence Plan of Treatment: Take Doxycyline as recommended an avoid opioid and follow through resources to help with opioid dependence Please follow up with your primary care doctor for further testing for hepatitis C and treatment Assessment: As above
--- NOTE | 2020-12-19 12:11 | MHC.CM.PN ---
PT IS CLEARED TO DC HOME TODAY. CM SPOKE TO RECOVERY TEAM MEMBERS WHO CONFIRMED THE PT WOULD BE DISCHARGED WITH A RX FOR SUBOXONE AND A PLAN TO FOLLOW UP AT [facility] ON TUESDAY. CM MET WITH PT WHO APPEARS TO UNDERSTAND THE DC PLAN AND BE AGREEABLE TO IT. PT AND VISITOR DID ASK ABOUT THE LOCATION OF [facility], CM GAVE THE ADDRESS AND INFORMED THEM THAT IT WOULD BE ADDED TO THE DISCHARGE PLAN. PT DENIED HAVING ANY QUESTIONS OR CONCERNS RELATED TO DC AND INDICATES SHE HAS TRANSPORTATION PT WILL DC HOME TODAY WITH PLAN TO FOLLOW UP AT [facility] ON TUESDAY FOR CONTINUED SUBOXONE TREATMENT
[2020-12-19 12:35] VITALS: BP 158/98
--- NOTE | 2020-12-19 13:37 | MHC.RECOVSUP ---
Recovery Support note: Recovery Support RN informed me that patient would be interested in going to detox. This contract technical writer reached out to [facility] facilities and unfortunately patient will not be able to go due to having [place] Medicaid. Patient would have to return to [place] for treatment or pay out of pocket. Discussed case with patient and her family. Discussed [facility] and provided patient with information on the financial counseling services available there. Encouraged patient to go Tuesday to get established as a patient and to work on completing a [facility] application. Patient is agreeable to this plan and reports no questions at this time.
[2020-12-20 12:57] LABS: TS Negative Control Passed; TS Panel A 0; TS Panel B 0; TS Positive Control Passed; TSpotTB Negative (SeeBelow)
[2020-12-20 18:01] LABS: C. Trachomatis RNA TMA, Throat NOT DETECTED (NOT DETECTED); N. gonorrhoeae RNA TMA, Throat NOT DETECTED (NOT DETECTED)
[2020-12-20 22:17] LABS: HCV Log PCR <1.18 NOT DETECTED Log IU/mL (NOT DETECTED); HepC Viral Load <15 NOT DETECTED IU/mL (NOT DETECTED)
== END 2020-12-19 13:12 | disposition home or self-care (01) | DRG 115 ==
LOC: HO.ED 15:08 → HO.IMC 12-17 02:17
PROVIDERS: Internal Medicine; Physician Assistant; Admitting Provider Hospitalist; Emergency Provider Internal Medicine; Visit Provider Internal Medicine
DX: K11.21 Acute sialoadenitis (principal); F11.20 Opioid dependence, uncomplicated; B19.20 Unspecified viral hepatitis C without hepatic coma; F17.210 Nicotine dependence, cigarettes, uncomplicated; Z71.6 Tobacco abuse counseling; Z20.822 Contact with and (suspected) exposure to COVID-19
CPT/HCPCS: 36415; 70491; 71045; 80048; 80076; 80307; 83605; 83735; 85025; 85652; 86140; 86308; 86481; 86611; 86777; 86778; 86780; 86803; 87040; 87389; 87491; 87522; 87591; 87635; 87651; 92610; 99284; J0295; J0690; J1100; J1885; Q9967